=== PATIENT | male | born 1995 | race Caucasian/White ===

== ENCOUNTER → 2019-02-24 13:59 | Outpatient (CLI) | payer OTHER, SELFPAY ==
[2019-02-24 15:53] LABS: Urine N gonorrhoeae NOT DETECTED
[2019-02-24 15:54] LABS: Urine Chlamydia NOT DETECTED
== END ==
PROVIDERS: Visit Provider Physician Assistant
DX: Z11.3 Encounter for screening for infections with a predominantly sexual mode of transmission (principal)
CPT/HCPCS: 87491; 87591

== ENCOUNTER 2020-03-28 12:12 | Emergency (ER) | payer OTHER, SELFPAY ==
[2020-03-28 12:15] VITALS: BP 149/67; PULSE 71; RESP 18; TEMP 37.1; O2SAT 99; BMI 25.0
--- NOTE | 2020-03-28 13:32 | ED_ITS ---
HPI - General Adult General Chief complaint: Environmental Exposure Stated complaint: Dizzy, possible CO2 exposure Time Seen by Provider: 03/28/20 13:25 Source: patient Mode of arrival: Ambulatory Limitations: no limitations History of Present Illness HPI narrative: Patient is a 25-year-old male who presents with carbon monoxide exposure. He was working on a boat body hurting alarm he thought it was a low battery but happened via carbon monoxide alarm. He was actually in the engine compartment. He signs the alarm a few times and then realized which alarm it was and left. He fell is a little nauseous and dizzy and fuzzy headed. He is getting better but still does not feel quite right. No other complaints he denies any shortness of breath Related Data Home Medications Medication Instructions Recorded Confirmed No Known Home Medications 02/24/19 02/24/19 Allergies Allergy/AdvReac Type Severity Reaction Status Date / Time Penicillins Allergy Severe face Verified 02/24/19 08:39 swelling Sulfa (Sulfonamide Allergy Severe rash, face Verified 02/24/19 08:39 Antibiotics) swelling, hard to breath, chest tightness. Review of Systems Review of Systems Narrative: GENERAL: Denies chills, fatigue, malaise, fever, sweats, travel HEENT: Denies sinus pain, ear pain, sore throat, difficulty swallowing, neck pain RESPIRATORY: Denies dyspnea, cough, wheezing, hemoptysis, sputum. CARDIOVASCULAR: Denies chest pain, palpitations, orthopnea, edema GASTROINTESTINAL: Denies nausea, vomiting, abdominal pain, diarrhea, constipation, melena. : Denies dysuria, frequency, incontinence, hematuria, urinary retention, flank pain. MUSCULOSKELETAL: Denies weakness, joint pain, or bony pain SKIN: No rash, no erythema, no pruritus NEUROLOGIC: Denies weakness, dizziness, headache, numbness, change in speech, confusion PSYCHIATRIC: No concerning psychosocial issues. 12 point review of systems is negative except for those stated above and HPI Patient History Social History Smoking Status: Never smoker Smoking Status: Never smoker alcohol intake frequency: 0-2 drinks per day Substance Use Type: does not use Exam Initial Vital Signs Initial Vital Signs: Vital Signs Temperature 98.7 F 03/28/20 12:15 Pulse Rate 71 03/28/20 12:15 Respiratory Rate 18 03/28/20 12:15 Blood Pressure 149/67 H 03/28/20 12:15 Pulse Oximetry 99 03/28/20 12:15 GENERAL: Well-appearing, well-nourished and in no acute distress. HEENT: Head atraumatic,EOMI, pupils reactive, face symmetric CARDIOVASCULAR: Regular rate and rhythm without murmurs, rubs or gallops. RESPIRATORY: Breath sounds equal bilaterally, no wheezes rales or rhonchi. ABDOMEN: Soft, nontender. Normoactive bowel sounds all 4 quadrants. No guarding or rebound. EXTREMITIES: Normal range of motion, no clubbing or edema. Neurovascularly intact NEUROLOGICAL: Alert and oriented x4.Normal gait and speech. SKIN: Warm, dry, no laceration, no petechiae, no rashes or lesions. Course Vital Signs Vital signs: Vital Signs - 8 hr 03/28/20 12:15 03/28/20 14:17 Temperature 98.7 F Pulse Rate 71 84 Respiratory Rate 18 16 Blood Pressure 149/67 H Blood Pressure [Left Arm] 130/65 Pulse Oximetry 99 100 Medical Decision Making MDM Narrative Medical decision making narrative: Carbon monoxide detector initially read as 6- 7. He is immediately placed on oxygen his symptoms improved the number went down to 3 he feels back to baseline. Feels ready and able to go home Discharge Plan Departure Patient Disposition: Home Clinical Impression: Carbon monoxide exposure Discharge Date/Time: 03/28/20 14:28 Instructions: DI for Carbon Monoxide Poisoning Activity Restrictions/Additional Instructions: *You have been diagnosed with carbon monoxide exposure *What to do: Stay away from the area where the carbon monoxide was. Be sure to get the problem fixed before returning *Continue to take medications as directed *Follow up with your primary care provider in 2-3 days *Return to ER if you should have increased dizziness headache shortness of breath or any new, worsening or concerning symptoms Prescriptions: No Action No Known Home Medications RF: 0
[2020-03-28 14:17] VITALS: BP 130/65; PULSE 84; RESP 16; O2SAT 100
--- NOTE | 2020-03-28 14:19 | PC.NURSE ---
maso co2 monitor 3.
--- NOTE | 2020-03-28 14:32 | PC.NURSE ---
pt nausea has resolved and feels more clear headed.
== END 2020-03-28 14:28 | disposition home or self-care (01) ==
PROVIDERS: Emergency Provider Emergency Medicine
DX: Z57.5 Occupational exposure to toxic agents in other industries (principal); Z77.29 Contact with and (suspected) exposure to other hazardous substances; Y99.0 Civilian activity done for income or pay
CPT/HCPCS: 99282

== ENCOUNTER 2020-12-03 16:06 | Emergency (ER) | payer OTHER, SELFPAY ==
[2020-12-03 16:41] VITALS: BP 142/63; PULSE 88; RESP 16; TEMP 37; O2SAT 98
--- NOTE | 2020-12-03 17:00 | DI.RAD.S_ITS ---
PROCEDURE: XR FINGER RT MIN 2V INDICATIONS: 2nd digit struck with metal from drillpress TECHNIQUE: AP hand, 2 views of the right finger(s) acquired. COMPARISON: None. FINDINGS: Bones: No fractures or dislocations. No suspicious bony lesions. Soft tissues: Soft tissue swelling and possible laceration of the index finger IMPRESSION: Soft tissue swelling. No fracture. If the patient's symptoms do not improve recommend followup radiographs in 10 days to assess for healing sclerosis/occult injury. Dictated by: Itz Valerio M.D. on 12/03/2020 at 17:17 Approved by: Itz Valerio M.D. on 12/03/2020 at 17:19
--- NOTE | 2020-12-03 20:57 | ED.WOUNDLAC ---
HPI - Wound/Laceration General Chief Complaint: Wound/Laceration Stated Complaint: rt index finger cut by aluminum Time Seen by Provider: 12/03/20 20:48 Source: patient Mode of arrival: Ambulatory Limitations: no limitations History of Present Illness HPI narrative: 25-year-old left-hand dominant male here for evaluation of a cut to the back of his right index finger. Patient states that it occurred at work just prior to arrival. His last tetanus shot was greater than 10 years ago. He states that he was using a drill press and a piece of freshly cut aluminum came back and cut his finger. He covered with a bandage. Related Data Home Medications Medication Instructions Recorded Confirmed No Known Home Medications 02/24/19 11/25/20 Allergies Allergy/AdvReac Type Severity Reaction Status Date / Time Penicillins Allergy Severe face Verified 11/25/20 08:24 swelling Sulfa (Sulfonamide Allergy Severe rash, face Verified 11/25/20 08:24 Antibiotics) swelling, hard to breath, chest tightness. Review of Systems Constitutional Constitutional: Denies fever(s) Musculoskeletal Musculoskeletal: Denies tingling Comments: No finger pain Integumentary/Breasts Comments: Cut to the back of the right index finger Neurologic Neurologic: Denies tingling Hematologic/Lymphatic On Anticoagulants: No Patient History Medical History Healthy adult Surgical History (Updated 11/25/20 @ 09:[address] [facility]) History of tonsillectomy Social History Smoking Status: Never smoker Smoking Status: Never smoker alcohol intake frequency: 0-2 drinks per day Substance Use Type: does not use Exam Initial Vital Signs Initial Vital Signs: Vital Signs Temperature 98.6 F 12/03/20 16:41 Pulse Rate 88 12/03/20 16:41 Respiratory Rate 16 12/03/20 16:41 Blood Pressure 142/63 H 12/03/20 16:41 Pulse Oximetry 98 12/03/20 16:41 Const General: cooperative and comfortable Limitations: mental status not altered HENMT Head: normal to inspection and normocephalic Cardio Pulses: radial pulses present on the right Skin Other: 2 cm laceration to the back of the right index finger just proximal to the PIP joint. Extrem Other: Patient able to flex and extend at the MCP PIP and the IP joint both active and passive without issues. Procedures Laceration Repair Laceration 1: Site: other (Right index finger) Side (If applicable): right Size (cm): 2 Description: linear Depth: simple, single layer Local Anesthetic: lidocaine 1% and with bicarb Amount of anesthesia used (mL): 3 Pre-repair: wound explored and deep structures intact Skin layer closed with: nylon Size (cm): 4-0 Number of sutures: 6 Technique: simple, interrupted Course Orders Ordered: ED Orders 12/03/20 17:00 XR finger RT min 2V Stat Discontinued Medications Bacitracin (Bacitracin Oint 0.9 Gm Pckt) 1 applic TOP NOW ONE Stop: 12/03/20 21:07 Diphtheria/Tetanus/Acell Pertussis (Tet,Diph,Pertuss(Acell),Vac/Pf 0.5 Ml Syringe) 0.5 ml IM .ONCE ONE Stop: 12/03/20 20:58 Last Admin: 12/03/20 21:02 Dose: 0.5 ml Documented by: Lidocaine/Sodium Bicarbonate (Lido 1%/Sod Bicarb 8.4% (10ml) 10 Ml Syringe) 10 ml INJ NOW ONE Stop: 12/03/20 20:58 Last Admin: 12/03/20 21:01 Dose: 10 ml Documented by: Vital Signs Vital signs: Vital Signs - 8 hr 12/03/20 16:41 Temperature 98.6 F Pulse Rate 88 Respiratory Rate 16 Blood Pressure 142/63 H Pulse Oximetry 98 MDM - Wound/Laceration Imaging Data Extremity x-ray #1: Radiologist's Impression: [address] [id number] ReportSigned Patient: Clementine Garcia#: [id number]: 1995Acct:[id number]/Sex: 25 / MDate of Service: 12/03/20Loc: EDAccession Number: [id number] Procedure: XR finger RT min 2V Ordering Provider: Marcello Lopez MD PROCEDURE: XR FINGER RT MIN 2V INDICATIONS: 2nd digit struck with metal from drillpress TECHNIQUE: AP hand, 2 views of the right finger(s) acquired. COMPARISON: None. FINDINGS: Bones: No fractures or dislocations. No suspicious bony lesions. Soft tissues: Soft tissue swelling and possible laceration of the index finger IMPRESSION: Soft tissue swelling. No fracture. If the patient's symptoms do not improve recommend followup radiographs in 10 days to assess for healing sclerosis/occult injury. Dictated by: Itz Valerio M.D. on 12/03/2020 at 17:17 Approved by: Itz Valerio M.D. on 12/03/2020 at 17:19 [facility] Narrative Medical decision making narrative: The deep structures appear to be intact. The does not appear to be any ligamentous injury. There is no fractures on the x-ray. Laceration was closed described above. Patient was given return precautions and follow-up instructions. His tetanus was updated. No indication for antibiotics. He expressed understanding and agreement. Discharge Plan Departure Patient Disposition: Home Clinical Impression: Laceration Instructions: DI for Laceration Repair Activity Restrictions/Additional Instructions: Leave the bandage that was placed on here in the emergency department in place until tomorrow evening. After that you can take it off. You can shower like normal after that. He can use soap and water. I do recommend that you keep of bandage over it like we discussed. You can use topical antibiotic ointment. The stitches do need to be removed in 7-10 days. Return to the emergency department for any new or worsening symptoms Prescriptions: No Action No Known Home Medications RF: 0
[2020-12-03] MEDS: LIDO 1%/SOD BICARB 8.4% (10ML) 10 ML SYRINGE INJ (21:01)
[2020-12-03] MEDS: TET,DIPH,PERTUSS(ACELL),VAC/PF 0.5 ML SYRINGE IM (21:02)
[2020-12-03] MEDS: BACITRACIN OINT 0.9 GM PCKT 1 APPLIC TOP (21:22)
== END 2020-12-03 21:21 | disposition home or self-care (01) ==
PROVIDERS: Emergency Provider Emergency Medicine
DX: S61.210A Laceration without foreign body of right index finger without damage to nail, initial encounter (principal); W26.8XXA Contact with other sharp object(s), not elsewhere classified, initial encounter; Y99.0 Civilian activity done for income or pay; Z23 Encounter for immunization
CPT/HCPCS: 12001; 73140; 90471; 99282; 99283; 90715

== ENCOUNTER 2021-05-17 11:59 | Emergency (ER) | payer OTHER, SELFPAY ==
[2021-05-17 12:06] VITALS: BP 136/76; PULSE 85; RESP 18; TEMP 37; O2SAT 98; BMI 24.5
[2021-05-17 12:58] LABS: Add Manual Diff / Slide Review NO; Basophils Absolute Auto 0 /uL (0-100); Basophils Percent Auto 0.3 % (0-2); Eosinophils Absolute Auto 0 /uL (0-450); Eosinophils Percent Auto 0.4 % (2-4); Hematocrit 42.4 % (41-53); Hemoglobin 15.2 g/dL (13.5-17.5); Lymphocytes Absolute Auto 1800 /uL (1100-4500); Mean Corpuscular HGB Conc 35.8 % (30-36); Mean Corpuscular Hemoglobin 28.8 PG (26-34); Mean Corpuscular Volume 80.5 fL (80-100); Monocytes Absolute Auto 300 /uL (0-900); Monocytes Percent Auto 6.1 % (3-14); Neutrophils Absolute Auto 3100 /uL (1500-7000); Neutrophils Percent Auto 58.2 % (50-75); Red Blood Cell Count 5.27 X10^6/uL (4.5-5.9); Red Cell Distribution Width 13.8 % (11.6-14.8); White Blood Cell Count 5.2 X10^3/uL (4.5-11.0)
[2021-05-17 12:59] LABS: INR 1.1 (0.9-1.3); Prothrombin Time 12.5 SECONDS (10.1-12.7)
[2021-05-17 13:01] LABS: PTT Partial Thromboplastin Tim 35 SECONDS (26.4-36.2)
[2021-05-17 13:03] LABS: Alanine Aminotransferase 20 IU/L (<50); Albumin 4.9 g/dL (3.5-5.0); Albumin Globulin Ratio 1.9 (1.0-2.8); Alkaline Phosphatase 65 U/L (38-126); Aspartate Aminotransferase 30 IU/L (17-59); BUN Creatinine Ratio 21.5 (6-22); Bilirubin Total 1.3 mg/dL (0.2-1.3); Blood Urea Nitrogen 14 mg/dL (9-20); Carbon Dioxide 24 mmol/L (22-32); Chloride 108 mmol/L (98-107); Estimated Glomerular Filt Rate > 60.0 mL/min (>60); Globulin 2.6 g/dL (1.7-4.1); Glucose 96 mg/dL (70-100); HEMOLYSIS 23 (0-50); Potassium 3.9 mmol/L (3.4-5.1); Sodium 142 mmol/L (137-145); Total Protein 7.5 g/dL (6.3-8.2)
--- NOTE | 2021-05-17 13:24 | ED_ITS ---
HPI - Skin/Abscess/Foreign Bdy General Chief complaint: Skin/Abscess/Foreign Body Stated complaint: Rash, sores on tongue, had ITP in past Sent by [facility] Time Seen by Provider: 05/17/21 12:01 Source: patient Mode of arrival: Ambulatory Limitations: no limitations History of Present Illness HPI narrative: 26-year-old gentleman with no significant medical history presents with developing rash over much of his body. Initially presented to urgent care and was sent to the emergency room for further evaluation. 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 According to his parents he received 2 platelet transfusions and symptoms resolved within 3 weeks and he has not had any symptoms until now. He notes that he has been a bit tired over the last 3-4 weeks but has not had other symptoms. He denies any prescription medications or nonprescription medications or drugs that he has been using. No toxic exposures that he is aware of. He describes no headaches, vision changes, dyspnea, orthopnea, palpitations, chest pain, abdominal pain, vomiting, diarrhea constipation, black or bloody stools, dysuria, hematuria. Related Data Previous Rx's Medication Instructions Recorded dexamethasone 6 mg tablet 21 mg PO DAILY 3 Days #11 tab 05/17/21 (Decadron) Allergies Allergy/AdvReac Type Severity Reaction Status Date / Time Penicillins Allergy Severe face Verified 05/17/21 12:06 swelling Sulfa (Sulfonamide Allergy Severe rash, face Verified 05/17/21 12:06 Antibiotics) swelling, hard to breath, chest tightness. Review of Systems Review of Systems Narrative: Remainder of complete review of systems is otherwise unremarkable except for that included in the HPI. Patient History Medical History (Updated 05/17/21 @ 14:06 by Suki Billingsley MD) Acute ITP Surgical History (Updated 11/25/20 @ 09:01 [facility] History of tonsillectomy Social History Smoking Status: Never smoker Smoking Status: Never smoker alcohol intake frequency: 0-2 drinks per day Substance Use Type: does not use Exam Narrative Exam Narrative: General: Healthy appearing, in no acute distress. Able to give a complete and coherent history. Well-nourished well-developed HEENT: Moist mucous membranes, normal sclera with reactive pupils, minor petechial lesion on the left anterior edge of his tongue Respiratory: Lungs are clear to auscultation, no wheezing no rales no rhonchi. Full and symmetrical air movement Cardiac: Regular rate and rhythm no murmurs no bruits Abdomen: Soft, nontender, good bowel tones, no flank pain Skin: Warm and dry, mild petechia over lower extremities with scattered petechiae over the trunk and upper extremities. No facial involvement Neurologic: Grossly neurologically intact with no obvious asymmetries or abnormalities Extremities: No trauma, well perfused Psych: Cooperative, appropriate insight and affect Initial Vital Signs Initial Vital Signs: Vital Signs Temperature 98.6 F 05/17/21 12:06 Pulse Rate 85 05/17/21 12:06 Respiratory Rate 18 05/17/21 12:06 Blood Pressure 136/76 05/17/21 12:06 Pulse Oximetry 98 05/17/21 12:06 Course Orders Ordered: ED Orders 05/17/21 12:25 Complete Blood Count AUTO DIFF Stat Comprehensive Metabolic Panel Stat Partial Thromboplastin Time Stat Pathologist Review (for CBC) Stat Prothrombin Time INR Stat Dexamethasone (Dexamethasone 4 Mg Tablet) 20 mg PO NOW ONE Stop: 05/17/21 14:01 Vital Signs Vital signs: Vital Signs - 8 hr 05/17/21 12:06 Temperature 98.6 F Pulse Rate 85 Respiratory Rate 18 Blood Pressure 136/76 Pulse Oximetry 98 MDM - Skin/Abscess/Foreign Bdy Lab Data Result diagrams: 05/17/21 12:25 05/17/21 12:25 Labs: Lab Results 05/17/21 05/17/21 05/17/21 Range/Units 12:25 12:25 12:25 WBC 5.2 (4.5-11.0) X10^3/uL RBC 5.27 (4.5-5.9) X10^6/uL Hgb 15.2 (13.5-17.5) g/dL Hct 42.4 (41-53) % MCV 80.5 (80-100) fL MCH 28.8 (26-34) PG MCHC 35.8 (30-36) % RDW 13.8 (11.6-14.8) % Plt Count 5 L* (150-400) X10^3/uL Neut % (Auto) 58.2 (50-75) % Lymph % (Auto) 35.0 (25-40) % [place] % (Auto) 6.1 (3-14) % Eos % (Auto) 0.4 L (2-4) % Baso % (Auto) 0.3 (0-2) % Neut # (Auto) 3100 (7722-2743) /uL Lymph # (Auto) 1800 (0631-3719) /uL [place] # (Auto) 300 (0-900) /uL Eos # (Auto) 0 (0-450) /uL Baso # (Auto) 0 (0-100) /uL Nucleated RBCs Cancelled Hypersegmented Neuts Cancelled Hypogranular Neuts Cancelled Reactive Lymphocytes Cancelled Smudge Cells Cancelled Other Cell Type Cancelled Toxic Granulation Cancelled Toxic Vacuolation Cancelled Dohle Bodies Cancelled Yovana Rods Cancelled WBC Morphology Comment Cancelled Platelet Estimate Cancelled Clumped Platelets Cancelled Plt Morphology Comment Cancelled RBC Morphology Cancelled Dimorphic RBCs Cancelled Polychromasia Cancelled Hypochromasia Cancelled Poikilocytosis Cancelled Basophilic Stippling Cancelled Anisocytosis Cancelled Microcytosis Cancelled Macrocytosis Cancelled Spherocytes Cancelled Pappenheimer Bodies Cancelled Sickle Cells Cancelled Target Cells Cancelled Tear Drop Cells Cancelled Ovalocytes Cancelled Stomatocytes Cancelled Helmet Cells Cancelled [place] Bodies Cancelled [place] Rings Cancelled Diana Cells Cancelled Acanthocytes (Spur) Cancelled Rouleaux Cancelled Schistocytes Cancelled PT 12.5 (10.1-12.7) SECONDS INR 1.1 (0.9-1.3) APTT 35 (26.4-36.2) SECONDS Sodium 142 (137-145) mmol/L Potassium 3.9 (3.4-5.1) mmol/L Chloride 108 H (98-107) mmol/L Carbon Dioxide 24 (22-32) mmol/L BUN 14 (9-20) mg/dL Creatinine 0.65 L (0.66-1.25) mg/dL Estimated GFR > 60.0 (>60) mL/min BUN/Creatinine Ratio 21.5 (6-22) Glucose 96 (70-100) mg/dL Calcium 10.0 (8.4-10.2) mg/dL Total Bilirubin 1.3 (0.2-1.3) mg/dL AST 30 (17-59) IU/L ALT 20 (<50) IU/L Alkaline Phosphatase 65 (38-126) U/L Total Protein 7.5 (6.3-8.2) g/dL Albumin 4.9 (3.5-5.0) g/dL Globulin 2.6 (1.7-4.1) g/dL Albumin/Globulin Ratio 1.9 (1.0-2.8) MDM Narrative Medical decision making narrative: Otherwise healthy 26-year-old gentleman presents with petechial rash over the last 3 weeks and fatigue with labs revealing a platelet count at 5. With no active bleeding he does not need a pl atelet transfusion currently. Care is reviewed with Dr. Willis who recommends ordering a peripheral blood smear which is done. 20 mg of oral dexamethasone for 4 days which is ordered. Dr. Oliva's office will contact the patient on Wednesday to schedule outpatient follow-up appointment. All findings concerns and precautions are reviewed with the patient. Specifically the risk for bleeding with any type of trauma. Questions are answered patient is safe for home discharge Discharge Plan Departure Patient Disposition: Home Clinical Impression: Acute ITP Instructions: DI for Immune Thrombocytopenic Purpura Activity Restrictions/Additional Instructions: Thank you for coming in today Your platelet count today is 5. Normal is greater than 100. We worry about bleeding when you get below 20. The rash that your noticing is small little bleeding in your skin because the platelet count is so low. I have spoken with 1 of our hematologists(blood specialists) regarding your exam and blood work. He has recommended Decadron, a powerful steroid, 20 mg daily 4 days in a row. This helps decrease your immune response so your body does not continue to destroy the platelets that you are making. 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 In the meantime, please avoid any activities that would put you at risk for falling or trauma or increased bleeding of any type. I wish you the best Prescriptions: New dexamethasone [Decadron] 6 mg tablet 21 mg PO DAILY 3 Days Qty: 11 RF: 0 Referrals: Escobar Chavez MD [Primary Care Provider] -
[2021-05-17 13:26] LABS: Platelet Count 5 X10^3/uL (150-400)
[2021-05-17] MEDS: dexAMETHasone 4 MG TABLET 20 MG PO (14:11)
[2021-05-17 14:44] VITALS: BP 136/61; PULSE 78; RESP 18; O2SAT 98
--- NOTE | 2021-05-19 10:47 | ONC.SCHED ---
Percy Martinez this patient was seen in the ER. She said that Dr. Guevara called and wanted to get this patient in [facility]. Dr. Guevara is not credentialed with [employer] [facility] yet. Per Mignon Richards I called [facility] to see if they had any openings for a new patient since Dr. Bland is booked out far. I talked to Lexus at [facility] and they are booked up until mid June as well. She transferred me to Tamika in Oncology at [facility] but I got VM. I did leave a msg. for her there. In the meantime percy Crow we are trying to get this patient in on 05/26/[address] Bland with trying to move a patient out. I did speak with the patient. His primary is Dr. Escobar Chavez on Wednesday but he's new to that Dr. Most of his records are at [facility] in [place]. I let the patient know I reached out to his Primary Dr. Chavez but got VM and that we needed a referral. He said he would also contact them to see about speeding things up.
--- NOTE | 2021-05-19 13:21 | ONC.SCHED ---
Referral: Dr. Escobar Chavez's office called back and said they are working on the referral to us along with insurance auth if needed. I also got a call back from Teresa at [facility] and she said to let her know if we don't hear by tomorrow on the referral and schedule.
== END 2021-05-17 14:44 | disposition home or self-care (01) ==
PROVIDERS: Emergency Provider Emergency Medicine; PCP Family Medicine
DX: D69.3 Immune thrombocytopenic purpura (principal)
CPT/HCPCS: 36415; 80053; 85025; 85610; 85730; 99283

== ENCOUNTER → 2021-05-19 14:53 | Outpatient (CLI) | payer OTHER, SELFPAY ==
[2021-05-19 15:14] LABS: Add Manual Diff / Slide Review NO; Basophils Absolute Auto 0 /uL (0-100); Eosinophils Absolute Auto 0 /uL (0-450); Hemoglobin 14.7 g/dL (13.5-17.5); Lymphocytes Absolute Auto 900 /uL (1100-4500); Lymphocytes Percent Auto 8.8 % (25-40); Mean Corpuscular Hemoglobin 28.6 PG (26-34); Mean Corpuscular Volume 81.7 fL (80-100); Monocytes Absolute Auto 100 /uL (0-900); Monocytes Percent Auto 1.1 % (3-14); Neutrophils Absolute Auto 8800 /uL (1500-7000); Neutrophils Percent Auto 90.1 % (50-75); Red Blood Cell Count 5.14 X10^6/uL (4.5-5.9); Red Cell Distribution Width 13.9 % (11.6-14.8); White Blood Cell Count 9.7 X10^3/uL (4.5-11.0)
[2021-05-19 15:16] LABS: Platelet Count 36 X10^3/uL (150-400)
[2021-05-19 15:33] LABS: Platelet Estimate Decreased on smear
== END ==
PROVIDERS: PCP Family Medicine; Referring Provider Internal Medicine Hematology & Oncology; Visit Provider Internal Medicine Hematology & Oncology
DX: D69.3 Immune thrombocytopenic purpura (principal)
CPT/HCPCS: 36415; 85025

== ENCOUNTER 2021-05-27 17:23 | Inpatient (IN) | payer OTHER, SELFPAY ==
[2021-05-27 18:40] VITALS: O2SAT 93
[2021-05-27 18:49] VITALS: BMI 24.7
[2021-05-27 21:00] VITALS: BP 133/67; PULSE 83; RESP 16; TEMP 36.8; O2SAT 99
[2021-05-27 22:22] LABS: COVID19 - ADMIT (NP swab/PCR) Negative (Negative)
[2021-05-27 22:40] VITALS: O2SAT 99
--- NOTE | 2021-05-27 23:05 | PC.NURSE ---
Admit Note- Patient direct admit from [facility]. Patient arrived at 2100. Admit questions done, physical assessment done, no home medications, skin check completed. SCD's placed as ordered. IV line started as ordered. Patient tolerated. Patient oriented to bed and bed controls, room, lights, menu, phone, bathroom, and call gambino/tv remote. Patient agrees to call for assistance. Safety measures in place. Call gambino and phone within reach. will continue to monitor.
[2021-05-27 23:07] LABS: Add Manual Diff / Slide Review NO; Basophils Absolute Auto 0 /uL (0-100); Basophils Percent Auto 0.3 % (0-2); Eosinophils Absolute Auto 100 /uL (0-450); Eosinophils Percent Auto 1.4 % (2-4); Hematocrit 40.5 % (41-53); Lymphocytes Absolute Auto 2500 /uL (1100-4500); Lymphocytes Percent Auto 42.2 % (25-40); Mean Corpuscular HGB Conc 34.7 % (30-36); Mean Corpuscular Hemoglobin 28.3 PG (26-34); Mean Corpuscular Volume 81.5 fL (80-100); Monocytes Absolute Auto 700 /uL (0-900); Monocytes Percent Auto 10.9 % (3-14); Neutrophils Absolute Auto 2700 /uL (1500-7000); Neutrophils Percent Auto 45.2 % (50-75); Red Blood Cell Count 4.97 X10^6/uL (4.5-5.9); Red Cell Distribution Width 13.8 % (11.6-14.8)
[2021-05-27 23:15] LABS: BUN Creatinine Ratio 23.2 (6-22); Blood Urea Nitrogen 19 mg/dL (9-20); Calcium 9.6 mg/dL (8.4-10.2); Carbon Dioxide 27 mmol/L (22-32); Chloride 104 mmol/L (98-107); Estimated Glomerular Filt Rate > 60.0 mL/min (>60); Glucose 104 mg/dL (70-100); HEMOLYSIS < 15 (0-50); Sodium 139 mmol/L (137-145)
[2021-05-27 23:35] LABS: Potassium 3.5 mmol/L (3.4-5.1)
[2021-05-27 23:39] LABS: Platelet Count 5 X10^3/uL (150-400)
[2021-05-28] VITALS (16 sets, daily range): BP systolic 135–150; BP diastolic 62–98; PULSE 66–98; RESP 16–18; TEMP 36.3–36.9; O2SAT 95–99
[2021-05-28 00:14] LABS: RBC Morphology Normal Morphology
[2021-05-28] MEDS: DEXAMETHASONE 10 MG/ML VIAL 40 MG IV (00:36)
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
[2021-05-28 05:27] LABS: Add Manual Diff / Slide Review NO; Basophils Absolute Auto 0 /uL (0-100); Basophils Percent Auto 0.1 % (0-2); Eosinophils Absolute Auto 0 /uL (0-450); Eosinophils Percent Auto 0.1 % (2-4); Hematocrit 41.9 % (41-53); Hemoglobin 14.6 g/dL (13.5-17.5); Lymphocytes Absolute Auto 1200 /uL (1100-4500); Lymphocytes Percent Auto 11.7 % (25-40); Mean Corpuscular HGB Conc 34.9 % (30-36); Mean Corpuscular Hemoglobin 28.2 PG (26-34); Mean Corpuscular Volume 80.7 fL (80-100); Monocytes Absolute Auto 200 /uL (0-900); Monocytes Percent Auto 1.8 % (3-14); Neutrophils Absolute Auto 8700 /uL (1500-7000); Neutrophils Percent Auto 86.3 % (50-75); Red Cell Distribution Width 14.1 % (11.6-14.8)
[2021-05-28 05:31] LABS: BUN Creatinine Ratio 28.2 (6-22); Blood Urea Nitrogen 22 mg/dL (9-20); Calcium 10.5 mg/dL (8.4-10.2); Carbon Dioxide 26 mmol/L (22-32); Chloride 106 mmol/L (98-107); Estimated Glomerular Filt Rate > 60.0 mL/min (>60); Glucose 154 mg/dL (70-100); HEMOLYSIS < 15 (0-50); Potassium 3.9 mmol/L (3.4-5.1); Sodium 139 mmol/L (137-145)
[2021-05-28 05:47] LABS: Platelet Count 33 X10^3/uL (150-400)
[2021-05-28 06:16] LABS: RBC Morphology Normal Morphology
[2021-05-28] MEDS: PANTOPRAZOLE DR 20 MG TABLET PO ×2 (06:55→20:53)
--- NOTE | 2021-05-28 09:32 | CM.DANOTE ---
DCP: Case received, EMR reviewed and met with patient. Introduced self and role. Was able to obtain information from patient regarding some health history and current living situation. DCP assessment completed with information currently available. Patient is a 26 year old male who admitted yesterday afternoon to the care of the hospitalist team. PCP: Dr. Chavez/oncologist: Dr. Bland. Payer: [employer]. Patient came to the hospital via private vehicle secondary to having some bleeing to his mough. Patient holds diagnosis of acute idiopathic thrombocytonenia. He is here for platelet transfusion, and dexamethosone treatment. Met with patient in his room. He is pleasant, alert and oriented. He is independent, and resides in [place] with his partner. He just started seeing Dr. Bland over at [facility] for his diagnosis. He is employed at a company called [employer]. P: DCP to continue to follow. Patient should be able to go home when he is deemed medically stable. He more than likely will need to follow up with oncology. Jackie Puri RN/D[employer] Grinder Tender
[2021-05-28] MEDS: ONDANSETRON 4 MG/2 ML INJ IV (09:34)
--- NOTE | 2021-05-28 11:19 | P.PN_ITS ---
Subjective Subjective Date Patient Seen: 05/28/21 Time Patient Seen: 11:20 Interval history: 26 year old male admitted with recurrence of ITP. Feels well today, denies complaints. Minimal petechiae and no mouth sores. Denies fever, chills, shortness of breath, bleeding. Discussed with Dr. Valerio, recommended IVIG today and tomorrow, if platelet count okay can discharge home. Exam Vital Signs (past 8 hours): - 05/28/21 03:35 05/28/21 04:45 05/28/21 06:00 Temperature 97.4 F L 98.2 F 98.2 F Pulse Rate 79 73 73 Respiratory Rate 16 16 16 Blood Pressure 145/77 H 140/69 140/69 Pulse Oximetry 99 05/28/21 07:30 05/28/21 07:35 Temperature 97.4 F L Pulse Rate 77 Respiratory Rate 18 Blood Pressure 150/76 H Pulse Oximetry 97 99 Oxygen Delivery Method Room Air Oxygen Flow Rate 0 Narrative Exam Narrative: General: Patient is a well-developed, well-nourished in no distress at this time. HEENT: Normocephalic, atraumatic, extraocular muscles intact, oral pharynx is clear and mucous membranes are moist Lungs: Auscultation of all lung gutierrez are clear without adventitious sounds, wheezes, rhonchi, or rales. Cardio: S1 & S2 with regular rate and rhythm without murmur, rubs, or gallops, no carotid bruit, no cardiac pulsations present. Abdomen: Soft nontender, negative for organomegaly, or masses. Skin: Warm dry and intact without rashes, ulcerations. There are very small petechiae on his lower extremities bilaterally near distal posterior calf. Neuro: Alert and orientated x3, strength is +5/5 in all extremities, no gross deficits noted of cranial nerves. Psych: Patient has a well-kept appearance, appropriate affect, mental status attitude thought context and judgment are appropriate for age. Objective Labs Result Diagrams: 05/28/21 04:49 05/28/21 04:49 Labs: Laboratory Results - last 24 hr 05/27/21 05/27/21 05/27/21 21:15 22:54 22:54 WBC 6.0 RBC 4.97 Hgb 14.0 Hct 40.5 L MCV 81.5 MCH 28.3 MCHC 34.7 RDW 13.8 Plt Count 5 L* Neut % (Auto) 45.2 L Lymph % (Auto) 42.2 H [place] % (Auto) 10.9 Eos % (Auto) 1.4 L Baso % (Auto) 0.3 Neut # (Auto) 2700 Lymph # (Auto) 2500 [place] # (Auto) 700 Eos # (Auto) 100 Baso # (Auto) 0 Platelet Estimate RBC Morphology Normal morphology Sodium 139 Potassium 3.5 Chloride 104 Carbon Dioxide 27 BUN 19 Creatinine 0.82 Estimated GFR > 60.0 BUN/Creatinine Ratio 23.2 H Glucose 104 H Calcium 9.6 SARS-CoV-2 (PCR) Negative Blood Type Antibody Screen Crossmatch 05/27/21 05/28/21 05/28/21 22:54 04:49 04:49 WBC 10.0 D RBC 5.20 Hgb 14.6 Hct 41.9 MCV 80.7 MCH 28.2 MCHC 34.9 RDW 14.1 Plt Count 33 L* Neut % (Auto) 86.3 H D Lymph % (Auto) 11.7 L D [place] % (Auto) 1.8 L Eos % (Auto) 0.1 L Baso % (Auto) 0.1 Neut # (Auto) 8700 H Lymph # (Auto) 1200 [place] # (Auto) 200 Eos # (Auto) 0 Baso # (Auto) 0 Platelet Estimate RBC Morphology Normal morphology Sodium 139 Potassium 3.9 Chloride 106 Carbon Dioxide 26 BUN 22 H Creatinine 0.78 Estimated GFR > 60.0 BUN/Creatinine Ratio 28.2 H Glucose 154 H Calcium 10.5 H SARS-CoV-2 (PCR) Blood Type O Positive Antibody Screen Negative Crossmatch See Detail [facility] Medical History Acute ITP Sinusitis Surgical History History of tonsillectomy Family History Father Hyperlipidemia Mother Hypertension Social History household members: significant other Smoking Status: Never smoker alcohol intake: current substance use type: does not use Assessment & Plan Assessment & Plan narrative: Patient is a 26-year-old male Mahendra Knudtson admitted with recurrence / remission of ITP. Platelet count improved today. 1. ITP, acute on chronic, present on admission - per Dr. Valerio, give IVIG x2 days at 1g/kg, continue dexamethasone 40 mg daily until discharge when he can switch to prednisone 1mg / kg or 70 mg daily. - given 1 pack of platelets with platelet count going from 5 to 33. Continue to follow. Code status: Full code Surrogate decision maker: Feliz Garcia (father) COVID PCR: Negative Quality VTE Deep Vein Thrombosis/Pulmonary Embolism Present on Admission: No
[2021-05-28] MEDS: ISOOSMOTIC VEHICLE IV (13:24)
[2021-05-28] MEDS: IMMUNE GLOBULIN IV (13:24)
--- NOTE | 2021-05-28 13:27 | PC.NURSE ---
IVIG: Pt given instuction material on IVIG. Pharmacy clarified dose and infusion rate. Pre IVIG vitals 140/84, 79, 16, t - 98.0. RA O2 sat is 99%. Discussed adverse reactions and what pt needed to report to staff such as diff breathing, dizziness, rash, ect. IVIG initiated at 40mls an hour.
--- NOTE | 2021-05-28 15:59 | PC.NURSE ---
Addendum entered by Yun Luu R.N. 05/29/21 03:51: The following note is for a different patient- please ignore. Original Note: Returned from [facility] via [facility] transport. she is sleepy, hungry but wants to nap first. Has bilat nephrostomy tubes which have dressings which are intact, no drainage. Both are draining pinkish uop with sl sediment. Kunz still in place and pt reports she was to have it removed on arrival, there are no orders. She is reporting her rt wrist is hurting, and it does appear sl swollen. BP w/systolic of 90's, hr is still a-fib but more controlled with rate between 80-90's. Yesterday was low 100's. Dr Potter called and notified pt would like to eat, her wrist is painful, she would like her kunz out, current vital signs. He will be coming to see her after office hours.
[2021-05-29] VITALS (7 sets, daily range): BP systolic 136–143; BP diastolic 64–88; PULSE 68–87; RESP 16–18; TEMP 36.7; O2SAT 98–100
[2021-05-29] MEDS: diphenhydrAMINE 25 MG TABLET PO (00:07)
--- NOTE | 2021-05-29 04:35 | PC.NURSE ---
At approx 0200, this RN was notified of pt experiencing episode of acute confusion. Pt found wandering outside room attempting to gain entrance into an ICU room with a stethoscope in hand. Pt unable to recall name. Brought back into room and assessed. VSS, WNL for patient. Back into room, patient able to recall name. took a minute for recall but was correct when answered. Pt unable to state any timeframe- year, month, day, day of week, or time. Pt able to recognize location of hospital, and knows hospital is in [place], but informed this RN that he thought he was in the emergency department. Patient able to recall significant other's name and birthday with no difficulty. Prior to this, assessment at approx 0000 had patient completely alert and oriented with no deficits. Given benadryl 25 mg as a sleep aid prn. Pt had no prior adverse effects when using benadryl. Pt had shown ability to move about room independently during prior shift. Pt shaken by episode. Experiencing trembling with no cold or temperature change. In no apparent cardiovascular or respiratory distress. Pulses present and bounding; respirations are equal, even, unlabored. No new or worsening petichiae or bruising since assessment at 0000. Patient re-oriented by this RN. Questions answered and assured by provider FACUNDO. Placed on bed alarm and instructed in fall precautions again. Pt verbalized and demonstrated understanding. Significant other moved closer to bedside for comfort. Fall risk changed to HIGH PER RN DISCRETION.
[2021-05-29 06:19] LABS: Add Manual Diff / Slide Review NO; Basophils Absolute Auto 0 /uL (0-100); Eosinophils Absolute Auto 0 /uL (0-450); Hematocrit 40.7 % (41-53); Lymphocytes Absolute Auto 900 /uL (1100-4500); Lymphocytes Percent Auto 7.9 % (25-40); Mean Corpuscular HGB Conc 34.4 % (30-36); Mean Corpuscular Hemoglobin 27.9 PG (26-34); Monocytes Absolute Auto 900 /uL (0-900); Monocytes Percent Auto 7.5 % (3-14); Neutrophils Absolute Auto 9900 /uL (1500-7000); Neutrophils Percent Auto 84.6 % (50-75); Platelet Count 55 X10^3/uL (150-400); Red Blood Cell Count 5.02 X10^6/uL (4.5-5.9); Red Cell Distribution Width 14.1 % (11.6-14.8); White Blood Cell Count 11.7 X10^3/uL (4.5-11.0)
[2021-05-29 06:26] LABS: BUN Creatinine Ratio 28.6 (6-22); Blood Urea Nitrogen 20 mg/dL (9-20); Calcium 9.9 mg/dL (8.4-10.2); Carbon Dioxide 22 mmol/L (22-32); Chloride 108 mmol/L (98-107); Estimated Glomerular Filt Rate > 60.0 mL/min (>60); Glucose 140 mg/dL (70-100); HEMOLYSIS < 15 (0-50); Potassium 4.3 mmol/L (3.4-5.1); Sodium 139 mmol/L (137-145)
--- NOTE | 2021-05-29 09:42 | P.DS_ITS ---
History of Present Illness History of Present Illness Date Patient Seen: 05/29/21 Time Patient Seen: 09:20 Chief complaint: INPATIENT ADMIT- [facility] Narrative: Per Janet Jimenez, KILN OPERATOR HELPER-: Patient is a 26-year-old male Mahendra Garcia who presented to the [facility] this he woke up that morning with worsening blistering bleeding m outh sores, open cuts on his tongue, feeling increasingly weak, with mild shortness of breath and was found to have a reported platelet count of 3 in the emergency room. Patient was a direct admit to [facility], patient was sent without any hospital documentation and staff was unable to collect any documentation. Patient reports a history that when he was 2.5 years of age, he was diagnosed with acute ITP and had platelet transfusion and IVIG x2. He has been doing well and without any recurrence until early May 2021 he developed petechiae and bruises all over his body except the head. He also developed painful bloody blister on the tongues. On 05/17/2021, [facility] at a [facility] and was referred to ER immediately. At ER, labs showed wBC 5.2, H/H 15.2/42.4, Platelets 5. He was started on pulse dose dexamethasone 20 mg daily. He tolerated well. On 05/19/2021, repeat CBC showed platelets improved to 36. Then, his dexamethasone dosage was increased to 40 mg daily and he took for 2 days. On 05/22 patient was seen by Dr[address] Bland Oncology his platelet counts are 73k. Clinically, the petechiae had improved significantly with only scattered residual petechiae around the ankles. The acute onset and the prompt response to dexamethasone Dr. Bland felt was consistent with the diagnosis of acute idiopathic thrombocytopenic purpura. Today patient reports moderate fatigue and weakness, worsening open cuts on his tongue and blistering in his mouth, occasional tachycardia, chills, acid reflux, and mild shortness of breath. Patient denies chest pain, headache, changes in vision, hemataemesis, fever, nausea, vomiting, abdominal pain, chest pain, recent injury, illness or trauma than otherwise documented, hematuria, melena, and no further bruising bleeding or petechiae to skin since oncology visit on 05/17/2021. Patient upon admit vital signs were stable patient was in no distress, patient's scattered residual petechiae appeared to continue improvement, no signs of act monica bleeding. Patient's labs upon admit hematocrit 40.5 platelets 5. Although low labs were within normal limits. Patient was resting comfortably. Oncology was reported to have been consulted earlier in the day and requested that the patient be admitted for ITP, placed on dexamethasone 40 mg q.day and platelet transfusion. Discharge Providers Provider Date of admission: 05/27/21 17:23 Discharge Date: 05/29/21 Primary care physician: Escobar Chavez MD Consults: 05/28/21 05:48 Consult to Oncology Routine Comment: Consulting Provider: Olga Bland Reason for consultation: ITP acute Has provider been notified: No Discharge provider: Wan Schaefer DO Summary Hospital Course Discharge Diagnosis: 1. ITP, acute on chronic, present on admission Hospital Course: This is a 26 year old male with PMH of ITP who was admitted with a platelet count of 3. His oncologist group was consulted and recommended IVIG x2 doses. He also received one pack of platelets. Due to availability of IVIG only 60 g was given during first dose, 2nd dose was full at [address] Bland recommended prednisone 70 mg daily instead of decadron on discharge and outpatient follow up in his clinic. His platelet count improved to 55 on the day of discharge and the patient continued to feel well. Time Spent with Patient Time spent: Greater than 30 minutes Exam Vital Signs (past 8 hours): - 05/29/21 02:00 05/29/21 02:19 05/29/21 06:00 Temperature Pulse Rate 68 Respiratory Rate 16 Blood Pressure 140/88 Pulse Oximetry 99 100 98 05/29/21 07:00 Temperature 98.0 F Pulse Rate 87 Respiratory Rate 16 Blood Pressure 136/64 Pulse Oximetry 99 Oxygen Delivery Method Room Air Oxygen Flow Rate 0 Narrative Exam Narrative: General: Patient is a well-developed, well-nourished in no distress at this time. HEENT: Normocephalic, atraumatic, extraocular muscles intact, oral pharynx is clear and mucous membranes are moist Lungs: Auscultation of all lung gutierrez are clear without adventitious sounds, wheezes, rhonchi, or rales. Cardio: S1 & S2 with regular rate and rhythm without murmur, rubs, or gallops, no carotid bruit, no cardiac pulsations present. Abdomen: Soft nontender, negative for organomegaly, or masses. Skin: Warm dry and intact without rashes, ulcerations. There are very small petechiae on his lower extremities bilaterally near distal posterior calf. Neuro: Alert and orientated x3, strength is +5/5 in all extremities, no gross deficits noted of cranial nerves. Psych: Patient has a well-kept appearance, appropriate affect, mental status attitude thought context and judgment are appropriate for age. Objective Labs Result Diagrams: 05/29/21 05:19 05/29/21 05:19 Labs: Laboratory Results - last 24 hr 05/29/21 05/29/21 05:19 05:19 WBC 11.7 H RBC 5.02 Hgb 14.0 Hct 40.7 L MCV 81.0 MCH 27.9 MCHC 34.4 RDW 14.1 Plt Count 55 L Neut % (Auto) 84.6 H Lymph % (Auto) 7.9 L [place] % (Auto) 7.5 Eos % (Auto) 0.0 L Baso % (Auto) 0.0 Neut # (Auto) 9900 H Lymph # (Auto) 900 L [place] # (Auto) 900 Eos # (Auto) 0 Baso # (Auto) 0 Sodium 139 Potassium 4.3 Chloride 108 H Carbon Dioxide 22 BUN 20 Creatinine 0.70 Estimated GFR > 60.0 BUN/Creatinine Ratio 28.6 H Glucose 140 H Calcium 9.9 PFSH Medical History Acute ITP Sinusitis Surgical History History of tonsillectomy Family History Father Hyperlipidemia Mother Hypertension Social History household members: significant other Smoking Status: Never smoker alcohol intake: current substance use type: does not use Discharge Plan Discharge Plan Patient Disposition: Home Discharge orders & Medications Prescriptions: New prednisone 50 mg tablet 50 mg PO DAILY 30 Days Qty: 30 RF: 0 prednisone 20 mg tablet 20 mg PO DAILY 30 Days Qty: 30 RF: 0 Continued multivitamin Tablet 1 tab DAILY RF: 0 Nutriful Stress 1 tab DAILY RF: 0 Discontinued dexamethasone 20 mg Tablet 40 mg PO DAILY Qty: 4 RF: 0 Follow up/Referrals: Escobar Chavez MD [Primary Care Provider] - Other Ambulatory Orders: Complete Blood Count AUTO DIFF (Stat) Timeframe: 1 Week Facility: [facility] - Location: Laboratory Ordered By: Wan Schaefer Visit Report/Discharge Packet Instructions: Immunoglobulin Therapy Discharge Data Primary Care Provider: Escobar Chavez Quality VTE Deep Vein Thrombosis/Pulmonary Embolism Present on Admission: No
[2021-05-29] MEDS: IMMUNE GLOBULIN IV (11:12)
[2021-05-29] MEDS: ISOOSMOTIC VEHICLE IV (11:12)
--- NOTE | 2021-05-29 13:28 | CM.DPC ---
Discharge Planning/Care Management CM Discharge Assessment Start: 05/28/21 09:30 Freq: Status: Active Protocol: Document 05/28/21 09:30 (Rec: 05/28/21 09:37 [id number]) Discharge Planning Assessment Assigned Clinical Nursing Professor Jackie Puri RN/Manager Tax Advance Directives? No Advance Directives on File No History Provided By Patient,Medical Record Prior Living Arrangements Apartment/Condo Household Members significant other Type of transporation used prior to Drives own vehicle admit Independent with ADL's Yes Is patient alert and oriented? Yes Caregiver for Another No Barriers to Discharge No Discharge Plan Home Transportation Arrangement Partner Referrals Initiated None needed Whiteboard Updated in Patient Room with Yes name and ext. # of Clinical Nursing Professor Review Status In Process Next Review Type Continued Stay Review 05/28/21 09:32 CM Disch. Assessment Note by Jackie Puri DCP: Case received, EMR reviewed and met with patient. Introduced self and role. Was able to obtain information from patient regarding some health history and current living situation. DCP assessment completed with information currently available. Patient is a 26 year old male who admitted yesterday afternoon to the care of the hospitalist team. PCP: Dr. Chavez/oncologist: Dr. Bland. Payer: [employer]. Patient came to the hospital via private vehicle secondary to having some bleeing to his mough. Patient holds diagnosis of acute idiopathic thrombocytonenia. He is here for platelet transfusion, and dexamethosone treatment. Met with patient in his room. He is pleasant, alert and oriented. He is independent, and resides in [place] his partner. He just started seeing Dr. Bland over at [facility] for his diagnosis. He is employed at a company called [employer]. P: DCP to continue to follow. Patient should be able to go home when he is deemed medically stable. He more than likely will need to follow up with oncology. Jackie Puri RN/Manager Tax Initialized on 05/28/21 09:32 - END OF NOTE
--- NOTE | 2021-05-29 13:28 | CM.DPC ---
DCP: Case received and a d/c order is now noted. Went to room to check in with pt and is girlfriend Nikia. Pt confirms that he will be leaving later this afternoon. They are trying to get an appt with Dr. Bland for me in the next couple of days. He and Nikia are planning to stay with friends in [place] for a few days rather than going right back to [place] to make sure he remains stable and to hopefully see Dr. Bland.
--- NOTE | 2021-05-29 15:15 | PC.NURSE ---
NORBERTO DC: Spoke with pt, appt with Dr. Bland scheduled for WednesdayJune 02 at 10:20, pt aware to have labs drawn prior to appt.
--- NOTE | 2021-05-29 16:32 | PC.NURSE ---
Patient given discharge information regarding f/u appointment with PCP, medications, s/s of worsening condition, activity. Patient and s.o. verbalized understanding. IV removed, patient tolerated. Patient walked out with assist from aide.
== END 2021-05-29 16:20 | disposition home or self-care (01) | DRG 813 ==
PROVIDERS: Admitting Provider Internal Medicine; PCP Family Medicine; Referring Provider Internal Medicine; Visit Provider Internal Medicine
DX: D69.3 Immune thrombocytopenic purpura (principal); Z20.822 Contact with and (suspected) exposure to COVID-19
CPT/HCPCS: 36415; 36430; 80048; 82962; 85025; 86850; 86900; 86901; 87635; C9803; P9016; J1100; J1561; J2405; P9035

== ENCOUNTER → 2022-03-10 17:07 | Outpatient (CLI) | payer OTHER, SELFPAY ==
[2022-03-10 18:19] LABS: Hematocrit 41.3 % (41-53); Hemoglobin 14.6 g/dL (13.5-17.5); Mean Corpuscular HGB Conc 35.4 % (30-36); Mean Corpuscular Volume 79.3 fL (80-100); Platelet Count 135 X10^3/uL (150-400); Red Blood Cell Count 5.21 X10^6/uL (4.5-5.9); Red Cell Distribution Width 13.8 % (11.6-14.8); White Blood Cell Count 6.7 X10^3/uL (4.5-11.0)
[2022-03-10 18:23] LABS: Add Manual Diff / Slide Review YES
[2022-03-10 19:41] LABS: Anisocytosis 1+; Neutrophils Absolute Manual 4020 /uL (3000-5900); Poikilocytosis 1+; Total Cells Counted 100
[2022-03-10 19:42] LABS: Polychromasia 1+; Tear Drop Cells 1+
== END ==
PROVIDERS: PCP Family Medicine; Referring Provider Internal Medicine Hematology & Oncology; Visit Provider Internal Medicine Hematology & Oncology
DX: D69.3 Immune thrombocytopenic purpura (principal)
CPT/HCPCS: 36415; 85007; 85025

== ENCOUNTER → 2022-07-22 13:08 | Outpatient (CLI) | payer OTHER, SELFPAY ==
[2022-07-22 13:54] LABS: Add Manual Diff / Slide Review NO; Basophils Absolute Auto 0 /uL (0-100); Basophils Percent Auto 0.5 % (0-2); Eosinophils Absolute Auto 100 /uL (0-450); Eosinophils Percent Auto 1.5 % (2-4); Hematocrit 40.6 % (41-53); Lymphocytes Absolute Auto 2100 /uL (1100-4500); Lymphocytes Percent Auto 43.5 % (25-40); Mean Corpuscular HGB Conc 34.4 % (30-36); Mean Corpuscular Hemoglobin 27.8 PG (26-34); Mean Corpuscular Volume 80.8 fL (80-100); Monocytes Absolute Auto 400 /uL (0-900); Monocytes Percent Auto 7.7 % (3-14); Neutrophils Absolute Auto 2200 /uL (1500-7000); Neutrophils Percent Auto 46.8 % (50-75); Platelet Count 179 X10^3/uL (150-400); Red Blood Cell Count 5.03 X10^6/uL (4.5-5.9); Red Cell Distribution Width 13.9 % (11.6-14.8); White Blood Cell Count 4.8 X10^3/uL (4.5-11.0)
== END ==
PROVIDERS: PCP Family Medicine; Referring Provider Internal Medicine Hematology; Visit Provider Internal Medicine Hematology
DX: D69.3 Immune thrombocytopenic purpura (principal)
CPT/HCPCS: 36415; 85025

== ENCOUNTER → 2022-07-29 12:32 | Outpatient (CLI) | payer OTHER, SELFPAY ==
[2022-07-29 12:54] LABS: Add Manual Diff / Slide Review NO; Basophils Absolute Auto 0 /uL (0-100); Basophils Percent Auto 0.3 % (0-2); Eosinophils Absolute Auto 100 /uL (0-450); Eosinophils Percent Auto 1.7 % (2-4); Hematocrit 39.4 % (41-53); Hemoglobin 13.8 g/dL (13.5-17.5); Lymphocytes Absolute Auto 2200 /uL (1100-4500); Lymphocytes Percent Auto 45.4 % (25-40); Mean Corpuscular Hemoglobin 28.2 PG (26-34); Mean Corpuscular Volume 80.6 fL (80-100); Monocytes Absolute Auto 300 /uL (0-900); Monocytes Percent Auto 6.9 % (3-14); Neutrophils Absolute Auto 2200 /uL (1500-7000); Neutrophils Percent Auto 45.7 % (50-75); Platelet Count 156 X10^3/uL (150-400); Red Blood Cell Count 4.89 X10^6/uL (4.5-5.9); White Blood Cell Count 4.9 X10^3/uL (4.5-11.0)
== END ==
PROVIDERS: PCP Family Medicine; Referring Provider Internal Medicine Hematology; Visit Provider Internal Medicine Hematology
DX: D69.3 Immune thrombocytopenic purpura (principal)
CPT/HCPCS: 36415; 85025

== ENCOUNTER → 2022-08-14 07:45 | Outpatient (CLI) | payer OTHER, SELFPAY ==
[2022-08-14 09:02] LABS: Add Manual Diff / Slide Review NO; Basophils Absolute Auto 0 /uL (0-100); Basophils Percent Auto 0.4 % (0-2); Eosinophils Absolute Auto 100 /uL (0-450); Eosinophils Percent Auto 2.2 % (2-4); Hematocrit 40.3 % (41-53); Hemoglobin 14.1 g/dL (13.5-17.5); Lymphocytes Absolute Auto 1800 /uL (1100-4500); Lymphocytes Percent Auto 47.3 % (25-40); Mean Corpuscular HGB Conc 35.1 % (30-36); Mean Corpuscular Hemoglobin 28.1 PG (26-34); Mean Corpuscular Volume 80.3 fL (80-100); Monocytes Absolute Auto 300 /uL (0-900); Monocytes Percent Auto 8.2 % (3-14); Neutrophils Absolute Auto 1600 /uL (1500-7000); Neutrophils Percent Auto 41.9 % (50-75); Platelet Count 156 X10^3/uL (150-400); Red Blood Cell Count 5.02 X10^6/uL (4.5-5.9); Red Cell Distribution Width 13.9 % (11.6-14.8); White Blood Cell Count 3.8 X10^3/uL (4.5-11.0)
== END ==
PROVIDERS: PCP Family Medicine; Referring Provider Internal Medicine Hematology; Visit Provider Internal Medicine Hematology
DX: D69.3 Immune thrombocytopenic purpura (principal)
CPT/HCPCS: 36415; 85025

== ENCOUNTER → 2022-08-21 08:07 | Outpatient (CLI) | payer OTHER, SELFPAY ==
[2022-08-21 10:01] LABS: Add Manual Diff / Slide Review NO; Basophils Absolute Auto 0 /uL (0-100); Basophils Percent Auto 0.5 % (0-2); Eosinophils Absolute Auto 100 /uL (0-450); Eosinophils Percent Auto 1.4 % (2-4); Hematocrit 40.9 % (41-53); Hemoglobin 14.2 g/dL (13.5-17.5); Lymphocytes Absolute Auto 1500 /uL (1100-4500); Lymphocytes Percent Auto 37.7 % (25-40); Mean Corpuscular HGB Conc 34.6 % (30-36); Mean Corpuscular Hemoglobin 27.7 PG (26-34); Mean Corpuscular Volume 79.9 fL (80-100); Monocytes Absolute Auto 300 /uL (0-900); Monocytes Percent Auto 6.8 % (3-14); Neutrophils Absolute Auto 2200 /uL (1500-7000); Neutrophils Percent Auto 53.6 % (50-75); Platelet Count 166 X10^3/uL (150-400); Red Blood Cell Count 5.12 X10^6/uL (4.5-5.9); White Blood Cell Count 4.1 X10^3/uL (4.5-11.0)
== END ==
PROVIDERS: PCP Family Medicine; Referring Provider Internal Medicine Hematology; Visit Provider Internal Medicine Hematology
DX: D69.3 Immune thrombocytopenic purpura (principal)
CPT/HCPCS: 36415; 85025

== ENCOUNTER → 2022-08-31 16:02 | Outpatient (CLI) | payer OTHER, SELFPAY ==
[2022-08-31 17:42] LABS: Add Manual Diff / Slide Review NO; Basophils Absolute Auto 0 /uL (0-100); Basophils Percent Auto 0.4 % (0-2); Eosinophils Absolute Auto 100 /uL (0-450); Eosinophils Percent Auto 2.1 % (2-4); Hematocrit 40.2 % (41-53); Hemoglobin 14.3 g/dL (13.5-17.5); Lymphocytes Absolute Auto 2300 /uL (1100-4500); Mean Corpuscular HGB Conc 35.7 % (30-36); Mean Corpuscular Hemoglobin 27.9 PG (26-34); Mean Corpuscular Volume 78.4 fL (80-100); Monocytes Absolute Auto 400 /uL (0-900); Monocytes Percent Auto 6.3 % (3-14); Neutrophils Absolute Auto 4000 /uL (1500-7000); Neutrophils Percent Auto 58.2 % (50-75); Platelet Count 184 X10^3/uL (150-400); Red Blood Cell Count 5.13 X10^6/uL (4.5-5.9); Red Cell Distribution Width 13.5 % (11.6-14.8); White Blood Cell Count 6.9 X10^3/uL (4.5-11.0)
== END ==
PROVIDERS: PCP Family Medicine; Referring Provider Internal Medicine Hematology; Visit Provider Internal Medicine Hematology
DX: D69.3 Immune thrombocytopenic purpura (principal)
CPT/HCPCS: 36415; 85025

== ENCOUNTER → 2022-10-27 06:52 | Outpatient (CLI) | payer OTHER, SELFPAY ==
--- NOTE | 2022-10-27 | DI.CT.S_ITS ---
PROCEDURE: CT SINUS SCREEN WO CON INDICATIONS: Chronic pansinusitis TECHNIQUE: Noncontrast 3.0 mm axial images acquired from the frontal sinuses to the mid-sella, with coronal and sagittal reformats. For radiation dose reduction, the following was used: automated exposure control, adjustment of mA and/or kV according to patient size. COMPARISON: None. FINDINGS: Image quality: Excellent. Maxillary Sinuses: No bony remodeling or destruction. Minimal mucosal thickening is seen within the inferior maxillary sinuses. Ethmoid Air Cells: No bony remodeling or destruction. Sinuses are clear. Sphenoid Sinuses: No bony remodeling or destruction. Sinuses are clear. Frontal Sinuses: No bony remodeling or destruction. Sinuses are clear. Ostiomeatal Complexes: Ostiomeatal complexes are patent, yet they are constitutionally narrowed. Ti cells are seen, at least on the right. Miscellaneous: Visualized intra-orbital contents are normal. Bilateral danny bullosa can be seen. There is mild leftward nasal septal deviation. IMPRESSION: Mild mucosal thickening is seen within the inferior maxillary sinuses. Bilateral danny bullosa noted. Mild leftward nasal septal deviation. Constitutionally narrowed ostiomeatal complexes, with Ti cells seen, at least on the right. Dictated by: Wesley Lee M.D. on 10/27/2022 at 9:14 Approved by: Wesley Lee M.D. on 10/27/2022 at 9:16
== END ==
PROVIDERS: PCP Family Medicine; Referring Provider Physician Assistant; Visit Provider Physician Assistant
DX: J32.4 Chronic pansinusitis (principal); J34.2 Deviated nasal septum; J34.3 Hypertrophy of nasal turbinates
CPT/HCPCS: 70486

== ENCOUNTER → 2022-12-10 12:51 | Outpatient (CLI) | payer OTHER, SELFPAY ==
[2022-12-10 13:44] LABS: Add Manual Diff / Slide Review NO; Basophils Absolute Auto 0 /uL (0-100); Basophils Percent Auto 0.5 % (0-2); Eosinophils Absolute Auto 100 /uL (0-450); Eosinophils Percent Auto 2.3 % (2-4); Hematocrit 40.5 % (41-53); Hemoglobin 13.9 g/dL (13.5-17.5); Lymphocytes Absolute Auto 1800 /uL (1100-4500); Lymphocytes Percent Auto 37.8 % (25-40); Mean Corpuscular HGB Conc 34.3 % (30-36); Mean Corpuscular Hemoglobin 27.7 PG (26-34); Mean Corpuscular Volume 80.6 fL (80-100); Monocytes Absolute Auto 300 /uL (0-900); Monocytes Percent Auto 6.8 % (3-14); Neutrophils Absolute Auto 2500 /uL (1500-7000); Neutrophils Percent Auto 52.6 % (50-75); Platelet Count 146 X10^3/uL (150-400); Red Blood Cell Count 5.02 X10^6/uL (4.5-5.9); Red Cell Distribution Width 14.2 % (11.6-14.8); White Blood Cell Count 4.8 X10^3/uL (4.5-11.0)
== END ==
PROVIDERS: PCP Family Medicine; Referring Provider Internal Medicine Hematology; Visit Provider Internal Medicine Hematology
DX: D69.3 Immune thrombocytopenic purpura (principal)
CPT/HCPCS: 36415; 85025

== ENCOUNTER → 2023-05-25 16:40 | Outpatient (CLI) | payer OTHER, SELFPAY ==
[2023-05-25 18:39] LABS: Add Manual Diff / Slide Review NO; Basophils Absolute Auto 0 /uL (0-100); Basophils Percent Auto 0.3 % (0-2); Eosinophils Absolute Auto 100 /uL (0-450); Eosinophils Percent Auto 2.4 % (2-4); Hematocrit 40.5 % (41-53); Hemoglobin 14.3 g/dL (13.5-17.5); Lymphocytes Absolute Auto 2200 /uL (1100-4500); Lymphocytes Percent Auto 35.5 % (25-40); Mean Corpuscular HGB Conc 35.3 % (30-36); Mean Corpuscular Hemoglobin 28.2 PG (26-34); Mean Corpuscular Volume 79.8 fL (80-100); Monocytes Absolute Auto 400 /uL (0-900); Monocytes Percent Auto 6.5 % (3-14); Neutrophils Absolute Auto 3400 /uL (1500-7000); Neutrophils Percent Auto 55.3 % (50-75); Platelet Count 173 X10^3/uL (150-400); Red Blood Cell Count 5.08 X10^6/uL (4.5-5.9); White Blood Cell Count 6.1 X10^3/uL (4.5-11.0)
== END ==
PROVIDERS: PCP Family Medicine; Referring Provider Family Medicine; Visit Provider Family Medicine
DX: D69.3 Immune thrombocytopenic purpura (principal)
CPT/HCPCS: 36415; 85025

== ENCOUNTER → 2023-07-20 08:12 | Outpatient (CLI) | payer OTHER, SELFPAY ==
[2023-07-20 09:55] LABS: Add Manual Diff / Slide Review NO; Basophils Absolute Auto 0 /uL (0-100); Basophils Percent Auto 0.5 % (0-2); Eosinophils Absolute Auto 300 /uL (0-450); Hematocrit 39.2 % (41-53); Hemoglobin 13.9 g/dL (13.5-17.5); Lymphocytes Absolute Auto 1900 /uL (1100-4500); Lymphocytes Percent Auto 43.2 % (25-40); Mean Corpuscular HGB Conc 35.6 % (30-36); Mean Corpuscular Hemoglobin 28.5 PG (26-34); Monocytes Absolute Auto 300 /uL (0-900); Neutrophils Absolute Auto 1900 /uL (1500-7000); Neutrophils Percent Auto 43.3 % (50-75); Platelet Count 158 X10^3/uL (150-400); Red Cell Distribution Width 13.6 % (11.6-14.8); White Blood Cell Count 4.5 X10^3/uL (4.5-11.0)
== END ==
PROVIDERS: PCP Family Medicine; Referring Provider Internal Medicine Hematology; Visit Provider Internal Medicine Hematology
DX: D69.3 Immune thrombocytopenic purpura (principal)
CPT/HCPCS: 36415; 85025

== ENCOUNTER → 2023-07-30 07:32 | Outpatient (CLI) | payer OTHER, SELFPAY ==
[2023-07-30 08:44] LABS: Add Manual Diff / Slide Review NO; Basophils Absolute Auto 0 /uL (0-100); Basophils Percent Auto 0.5 % (0-2); Eosinophils Absolute Auto 100 /uL (0-450); Hematocrit 40.2 % (41-53); Lymphocytes Absolute Auto 1800 /uL (1100-4500); Mean Corpuscular HGB Conc 34.8 % (30-36); Mean Corpuscular Hemoglobin 28.1 PG (26-34); Mean Corpuscular Volume 80.7 fL (80-100); Monocytes Absolute Auto 300 /uL (0-900); Monocytes Percent Auto 8.1 % (3-14); Neutrophils Absolute Auto 2000 /uL (1500-7000); Neutrophils Percent Auto 46.4 % (50-75); Platelet Count 152 X10^3/uL (150-400); Red Blood Cell Count 4.98 X10^6/uL (4.5-5.9); Red Cell Distribution Width 13.9 % (11.6-14.8); White Blood Cell Count 4.2 X10^3/uL (4.5-11.0)
== END ==
PROVIDERS: PCP Family Medicine; Referring Provider Internal Medicine Hematology; Visit Provider Internal Medicine Hematology
DX: D69.3 Immune thrombocytopenic purpura (principal)
CPT/HCPCS: 36415; 85025

== ENCOUNTER → 2023-09-09 11:30 | Outpatient (CLI) | payer OTHER, SELFPAY ==
[2023-09-09 12:40] LABS: Add Manual Diff / Slide Review NO; Basophils Absolute Auto 0 /uL (0-100); Basophils Percent Auto 0.6 % (0-2); Eosinophils Absolute Auto 100 /uL (0-450); Eosinophils Percent Auto 2.3 % (2-4); Hematocrit 40.3 % (41-53); Hemoglobin 14.1 g/dL (13.5-17.5); Lymphocytes Absolute Auto 1700 /uL (1100-4500); Lymphocytes Percent Auto 33.7 % (25-40); Mean Corpuscular HGB Conc 35.1 % (30-36); Mean Corpuscular Volume 79.7 fL (80-100); Monocytes Absolute Auto 300 /uL (0-900); Monocytes Percent Auto 6.1 % (3-14); Neutrophils Absolute Auto 3000 /uL (1500-7000); Neutrophils Percent Auto 57.3 % (50-75); Platelet Count 173 X10^3/uL (150-400); Red Blood Cell Count 5.05 X10^6/uL (4.5-5.9); Red Cell Distribution Width 13.7 % (11.6-14.8); White Blood Cell Count 5.2 X10^3/uL (4.5-11.0)
== END ==
PROVIDERS: PCP Family Medicine; Referring Provider Internal Medicine Hematology; Visit Provider Internal Medicine Hematology
DX: D69.3 Immune thrombocytopenic purpura (principal)
CPT/HCPCS: 36415; 85025

== ENCOUNTER → 2024-06-13 10:06 | Outpatient (CLI) | payer OTHER, SELFPAY ==
[2024-06-13 11:08] LABS: Add Manual Diff / Slide Review NO; Basophils Absolute Auto 0 /uL (0-100); Basophils Percent Auto 0.5 % (0-2); Eosinophils Absolute Auto 100 /uL (0-450); Eosinophils Percent Auto 1.6 % (2-4); Hematocrit 40.3 % (41-53); Hemoglobin 14.3 g/dL (13.5-17.5); Lymphocytes Absolute Auto 1700 /uL (1100-4500); Lymphocytes Percent Auto 39.9 % (25-40); Mean Corpuscular HGB Conc 35.5 % (30-36); Mean Corpuscular Hemoglobin 28.8 PG (26-34); Mean Corpuscular Volume 81.1 fL (80-100); Monocytes Absolute Auto 300 /uL (0-900); Monocytes Percent Auto 6.2 % (3-14); Neutrophils Absolute Auto 2200 /uL (1500-7000); Neutrophils Percent Auto 51.8 % (50-75); Platelet Count 166 X10^3/uL (150-400); Red Blood Cell Count 4.97 X10^6/uL (4.5-5.9); Red Cell Distribution Width 13.9 % (11.6-14.8); White Blood Cell Count 4.3 X10^3/uL (4.5-11.0)
[2024-06-16 03:36] LABS: Apolipoprotein B 79 mg/dL (<90)
[2024-06-17 15:36] LABS: Beta-2-Microglobulin 1.4 mg/L (0.6-2.4)
[2024-06-19 12:37] LABS: Lipoprotein (a) <8.4 nmol/L (<75.0)
[2024-06-27 10:55] LABS: Alanine Aminotransferase 17 IU/L (<50); Albumin Globulin Ratio 2.6 (1.0-2.8); Alkaline Phosphatase 52 U/L (38-126); Aspartate Aminotransferase 24 IU/L (17-59); BUN Creatinine Ratio 12.8 (6-22); Bilirubin Total 1.4 mg/dL (0.2-1.3); Blood Urea Nitrogen 10 mg/dL (9-20); Calcium 10.2 mg/dL (8.4-10.2); Carbon Dioxide 28 mmol/L (22-32); Chloride 101 mmol/L (98-107); Cholesterol 146 mg/dL (140-199); Estimated Glomerular Filt Rate > 60 mL/min (>60); Globulin 1.9 g/dL (1.7-4.1); Glucose 87 mg/dL (70-100); HDL Cholesterol 50 mg/dL (40-60); HEMOLYSIS < 15 (0-50); LDL Cholesterol Calculated 83 mg/dL (<100); Potassium 4.6 mmol/L (3.4-5.1); Sodium 138 mmol/L (137-145); Total Protein 6.9 g/dL (6.3-8.2); Triglycerides 65 mg/dL (35-150)
== END ==
PROVIDERS: PCP Family Medicine; Referring Provider Family Medicine; Visit Provider Family Medicine
DX: Z00.00 Encounter for general adult medical examination without abnormal findings (principal); D69.3 Immune thrombocytopenic purpura; D69.6 Thrombocytopenia, unspecified; J32.0 Chronic maxillary sinusitis
CPT/HCPCS: 36415; 80053; 80061; 82172; 82232; 83695; 85025

== ENCOUNTER → 2025-07-26 08:09 | Outpatient (CLI) | payer OTHER, SELFPAY ==
--- NOTE | 2025-07-26 08:10 | DI.RAD.S_ITS ---
PROCEDURE: XR SHOULDER RT MIN 2V INDICATIONS: rt shoulder pain TECHNIQUE: Three views of the shoulder were acquired. COMPARISON: None. FINDINGS: Bones: There are no osseous abnormalities. Acromioclavicular and glenohumeral joints: Normal in width and alignment without arthritic change Soft tissues: No soft tissue swelling, calcification or mass. IMPRESSION: Normal shoulder Dictated by: Maldonado Mclaughlin M.D. on 07/26/2025 at 12:08 Approved by: Maldonado Mclaughlin M.D. on 07/26/2025 at 12:08
== END ==
PROVIDERS: PCP Family Medicine; Referring Provider Nurse Practitioner Family; Visit Provider Nurse Practitioner Family
DX: M25.511 Pain in right shoulder (principal)
CPT/HCPCS: 73030